=== PATIENT | male | born 1990 | race African-American/Black ===

== ENCOUNTER 2024-09-19 19:25 | Emergency (ER) | payer OTHER ==
[~2024-09-19] VITALS: Ht 170.2 cm; Wt 68.0 kg
[2024-09-19] MEDS ORDERED: PANTOPRAZOLE 40 MG VIAL ONE (19:56)
[2024-09-19] MEDS ORDERED: ONDANSETRON HCL/PF 4 MG/2 ML VIAL ONE (19:56)
[2024-09-19] MEDS ORDERED: MORPHINE SULFATE INJ 4 MG/ML DISP.SYRIN ONE (19:57)
[2024-09-19 20:03] LABS: PLATELET COUNT (AUTO) 203 K/uL (150-450); RED BLOOD CELL COUNT(AUTO) 4.31 MIL/uL (4.5-6.0); RED CELL DISTRIBUTION WIDTH 14.8 % (11.5-15.0); WHITE BLOOD COUNT (AUTO) 3.8 K/uL (4.3-11.0)
[2024-09-19] MEDS: IV NS 0.9% 1,000 ML BAG IV ONE (20:06)
[2024-09-19] MEDS: ONDANSETRON HCL/PF 4 MG/2 ML VIAL IVP ONE (20:06)
[2024-09-19] MEDS: MORPHINE SULFATE INJ 2 MG/ML DISP.SYRIN IV ONE (20:06)
[2024-09-19] MEDS: PANTOPRAZOLE 40 MG VIAL IV ONE (20:06)
[2024-09-19 20:10] LABS: CALCIUM, SERUM 8.8 mg/dL (8.5-10.1); CREATININE 1.2 mg/dL (0.6-1.3); SODIUM SERUM 143.0 mmol/L (136-145); UREA NITROGEN, BLOOD 11.0 mg/dL (7-18)
[2024-09-19] MEDS ORDERED: IV NS 0.9% 250 ML IV ONE (20:10)
[2024-09-19] MEDS ORDERED: IOHEXOL-300 100 ML VIAL IV ONE (20:10)
[2024-09-19 20:13] LABS: INR 0.91 (0.91-1.10)
[2024-09-19 20:16] LABS: ASPARTATE AMINOTRANSFERASE 32.0 U/L (15-37); TOTAL PROTEIN, SERUM 7.7 g/dL (6.4-8.2)
[2024-09-19] MEDS ORDERED: AMOX-430 PO (21:42)
[2024-09-19] MEDS ORDERED: ONDA4TAB5 PO (21:42)
[2024-09-19 21:58] VITALS: BP 126/74; TEMP 98.4; O2SAT 99
== END 2024-09-19 21:58 | disposition home or self-care (01) ==
LOC: ER 19:28
DX: A09 Infectious gastroenteritis and colitis, unspecified (principal); R11.2 Nausea with vomiting, unspecified; Z60.2 Problems related to living alone
CPT/HCPCS: 99285; 74177; 96374; 96375; 96361; 85025; 80048; 83690; 80076; 36415; 85730; J2270; J2405; J7030; J7050; J2470; Q9967